=== PATIENT | male | born 2005 | race African-American/Black ===

== ENCOUNTER 2024-01-20 08:32 | Emergency (ER) | payer OTHER ==
[~2024-01-20] VITALS: Ht 154.9 cm; Wt 77.8 kg
[2024-01-20 08:35] VITALS: TEMP 97.8
[2024-01-20 09:53] VITALS: BP 119/61; PULSE 55; RESP 12; O2SAT 97
== END 2024-01-20 10:11 | disposition home or self-care (01) ==
LOC: ER 08:32
DX: M25.511 Pain in right shoulder (principal); Z88.1 Allergy status to other antibiotic agents; Z79.899 Other long term (current) drug therapy; X50.0XXA Overexertion from strenuous movement or load, initial encounter; Y93.89 Activity, other specified; Y92.89 Other specified places as the place of occurrence of the external cause; Y99.8 Other external cause status
CPT/HCPCS: 73030; 99283

== ENCOUNTER 2024-02-26 08:41 | Emergency (ER) | payer OTHER ==
[~2024-02-26] VITALS: Ht 175.3 cm; Wt 81.8 kg
[2024-02-26 08:44] VITALS: BP 129/55; PULSE 60; RESP 17; TEMP 97.8; O2SAT 99
[2024-02-26] MEDS ORDERED: NAPR-56 PO (09:34)
== END 2024-02-26 10:13 | disposition home or self-care (01) ==
LOC: ER 08:42
DX: M25.551 Pain in right hip (principal); F17.200 Nicotine dependence, unspecified, uncomplicated; Z88.1 Allergy status to other antibiotic agents
CPT/HCPCS: 73522; 99284

== ENCOUNTER 2024-03-02 15:33 | Emergency (ER) | payer OTHER ==
[~2024-03-02] VITALS: Ht 175.3 cm; Wt 81.8 kg
[~2024-03-02 15:33] MED LIST: NAPR-56 PO
[2024-03-02 15:49] VITALS: BP 132/65; PULSE 66; RESP 18; TEMP 97.8; O2SAT 98
== END 2024-03-02 16:03 | disposition home or self-care (01) ==
LOC: ER 15:34
DX: Z02.79 Encounter for issue of other medical certificate (principal); Z88.1 Allergy status to other antibiotic agents
CPT/HCPCS: 99281